=== PATIENT | female | born 1980 | race Caucasian/White ===

== ENCOUNTER 2024-12-15 08:13 | Emergency (ER) | payer OTHER ==
[2024-12-15 08:17] VITALS: RESP 18; TEMP 97.4
[2024-12-15 08:18] LABS: Glucose,Whole Blood 199 mg/dL (70-110)
--- NOTE | 2024-12-15 08:42 | ED ---
Recheck HPI - General Chief Complaint: Recheck/Abnormal Lab/Rx Stated Complaint: R Foot Issue Time Seen by Provider: 12/15/24 08:42 Source: patient, RN notes reviewed Mode of arrival: ambulatory Limitations: no limitations - History of Present Illness Initial Comments: 44-year-old female with a past medical history significant of type 2 diabetes and hypertension presented the ER for evaluation of right great toe pain. Patient states in July she accidentally stepped on a thumbtack with her right foot. Patient ultimately underwent surgical debridement of the wound and has been following up with wound care. Patient states wound care told her wound was completely healed and she no longer needed to wear boot. She states she is currently in town from [place] visiting a friend. She reports yesterday she was doing a lot of walking and today noticed swelling and discoloration to right great toe. She states her toe was "numb". She denies any known injuries or traumas. Patient also reports elevated blood pressures. Patient reports she follows up with cardiology and is prescribed losartan and carvedilol. She has not taken her morning dose of carvedilol. She denies any dizziness, lightheadedness, chest pain, shortness of breath, visual disturbances or headache. 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 Patient denies any fevers, chills, nausea, vomiting, abdominal pain, constipation/diarrhea, urinary complaints or other complaints at this time - Related Data Previous Rx's Medication Instructions Recorded Indomethacin [Indocin] 50 mg PO TID #30 capsule 12/15/24 Allergies Allergy/AdvReac Type Severity Reaction Status Date / Time No Known Allergies Allergy Verified 12/15/24 08:17 Review of Systems ROS Statement: Those systems with pertinent positive or pertinent negative responses have been documented in the HPI. ROS Other: All systems not noted in ROS Statement are negative. Past Medical History Past Medical History: Heart Failure, Diabetes Mellitus History of Any Multi-Drug Resistant Organisms: None Reported Past Surgical History: No Surgical Hx Reported Past Psychological History: No Psychological Hx Reported Smoking Status: Never smoker Past Alcohol Use History: None Reported Past Drug Use History: None Reported General Exam Limitations: no limitations General appearance: alert, in no apparent distress Respiratory exam: Present: normal lung sounds bilaterally. Absent: respiratory distress, wheezes, rales, rhonchi, stridor Cardiovascular Exam: Present: regular rate, normal rhythm, normal heart sounds. Absent: systolic murmur, diastolic murmur, rubs, gallop, clicks Extremities exam: Present: full ROM, normal capillary refill (2+ right DP), other (Healed elliptical wound to dorsal aspect of right foot. There is no open wound, erythema, purulent drainage. Edema to right great toe. No erythema or rash) Neurological exam: Present: alert, oriented X3, CN II-XII intact Skin exam: Present: warm, dry, intact, normal color. Absent: rash Course Vital Signs 12/15/24 12/15/24 08:13 10:04 Temperature 97.4 F L Pulse Rate 77 79 Respiratory 18 18 Rate Blood Pressure 192/102 179/89 O2 Sat by Pulse 99 100 Oximetry Medical Decision Making - Medical Decision Making Was pt. sent in by a medical professional or institution (, PA, LARD TUB WASHER, urgent care, hospital, or halfway...) When possible be specific @ -No Did you speak to anyone other than the patient for history (EMS, parent, family, police, friend...)? What history was obtained from this source @ -No Did you review nursing and triage notes (agree or disagree)? Why? @ -I reviewed and agree with nursing and triage notes Were old charts reviewed (outside hosp., previous admission, EMS record, old EKG, old radiological studies, urgent care reports/EKG's, halfway records)? Report findings @ -No old charts were reviewed Differential Diagnosis (chest pain, altered mental status, abdominal pain women, abdominal pain men, vaginal bleeding, weakness, fever, dyspnea, syncope, headache, dizziness, GI bleed, back pain, seizure, CVA, palpatations, mental health, musculoskeletal)? @ -Differential Musculoskeletal: Muscular strain, contusion, ligament sprain, fracture, arthritis, septic arthritis, bursitis, cellulitis, muscle spasm, nerve compression, DVT, arterial occlusion, herpes zoster, electrolyte abnormality, tumor.... This is not meant to be in all inclusive list EKG interpreted by me (3pts min.). @ -As above X-rays interpreted by me (1pt min.). @ -Right foot x-ray interpreted by me remarkable for soft tissue swelling most pronounced at fifth metatarsal base. No subcutaneous gas or bony erosion concerning of osteomyelitis. No acute fractures. Degenerative changes noted CT interpreted by me (1pt min.). @ -None done U/S interpreted by me (1pt. min.). @ -None done What testing was considered but not performed or refused? (CT, X-rays, U/S, labs)? Why? @ -None What meds were considered but not given or refused? Why? @ -None Did you discuss the management of the patient with other professionals (professionals i.e. , PA, LARD TUB WASHER, lab, RT, psych nurse, social secretary, internal sales, teacher, air intelligence officer, pillowcase turner)? Give summary @ -No Was smoking cessation discussed for >3mins.? @ -No Was critical care preformed (if so, how long)? @ -No Were there social determinants of health that impacted care today? How? (Ho melessness, low income, unemployed, alcoholism, drug addiction, transportation, low edu. Level, literacy, decrease access to med. care, long term, rehab)? @ -No Was there de-escalation of care discussed even if they declined (Discuss DNR or withdrawal of care, Hospice)? DNR status @ -No What co-morbidities impacted this encounter? (DM, HTN, Smoking, COPD, CAD, Cancer, CVA, ARF, Chemo, Hep., AIDS, mental health diagnosis, sleep apnea, morbid obesity)? @ -Diabetes, hypertension Was patient admitted / discharged? Hospital course, mention meds given and route, prescriptions, significant lab abnormalities, going to OR and other pertinent info. @ -Discharge. 42-year-old female presented the ER for evaluation of right great toe pain. Upon arrival patient hypertensive 192/102 patient states she did not take her antihypertensive medication, Coreg, this morning she will be provided with this. Exam remarkable for mild edema to right great toe there is no overlying wounds. Surgical incision appears well healed with no evidence of infection. Patient is neurovascularly intact. Laboratories obtained unimpressive. Urinalysis with 3+ glucose and 3+ protein patient is diabetic. Urine hCG negative. Symptomatic control with Toradol, with improvement. Upon reevaluation, patient resting comfortably in exam room no signs acute distress. Symptoms and blood pressure improved. Patient eager for discharge. Indomethacin prescribed for possible early onset gout, given patient's medical history. Advise close follow-up with PCP. Return parameters discussed. Patient discharged stable condition. Patient verbally expressed understand agreement care plan. Case discussed with ED attending, Dr. Price Undiagnosed new problem with uncertain prognosis? @ -No Drug Therapy requiring intensive monitoring for toxicity (Heparin, Nitro, Insulin, Cardizem)? @ -No Were any procedures done? @ -No Diagnosis/symptom? @ -Toe pain Acute, or Chronic, or Acute on Chronic? @ -Acute Uncomplicated (without systemic symptoms) or Complicated (systemic symptoms)? @ -Uncomplicated Side effects of treatment? @ -No Exacerbation, Progression, or Severe Exacerbation? @ -No Poses a threat to life or bodily function? How? (Chest pain, USA, IA, pneumonia, PE, COPD, DKA, ARF, appy, cholecystitis, CVA, Diverticulitis, Homicidal, Suicidal, threat to staff... and all critical care pts) @ -No - Lab Data Result diagrams: 12/15/24 08:40 12/15/24 08:40 Lab Results 12/15/24 12/15/24 12/15/24 Range/Units 08:16 08:40 08:40 WBC 5.16 (4.50-10.00) 10*3/uL RBC 4.80 (4.10-5.20) 10*6/uL Hgb 13.2 (12.0-15.0) g/dL Hct 40.7 (37.2-46.3) % MCV 84.8 (80.0-97.0) fL MCH 27.5 (27.0-32.0) pg MCHC 32.4 (32.0-37.0) g/dL Plt Count 258 (140-440) 10*3/uL MPV 10.8 (9.5-12.2) fL Immature Gran % (Auto) 0.2 % Neutrophils % 65.1 % Lymphocytes % 24.4 % Monocytes % 7.2 % Eosinophils % 2.5 % Basophils % 0.6 % Immature Gran # 0.01 (0.00-0.04) 10*3/uL Neutrophils # 3.36 (1.80-7.70) 10*3/uL Lymphocytes # 1.26 (0.90-5.00) 10*3/uL Monocytes # 0.37 (0.20-1.00) 10*3/uL Eosinophils # 0.13 (0.04-0.35) 10*3/uL Basophils # 0.03 (0.00-0.10) 10*3/uL Sodium 136 L (137-145) mmol/L Potassium 4.4 (3.5-5.1) mmol/L Chloride 108 H (98-107) mmol/L Carbon Dioxide 22 (22-30) mmol/L Anion Gap 6 mmol/L BUN 30 H (7-17) mg/dL Creatinine 1.00 (0.52-1.04) mg/dL Est GFR (CKD-EPI)AfAm 81 (>60 ml/min/1.73 sqM) Est GFR (CKD-EPI)NonAf 70 (>60 ml/min/1.73 sqM) Glucose 191 H (74-99) mg/dL POC Glucose (mg/dL) 199 H (70-110) mg/dL POC Glu Choir Teacher ID Breonna Guzman Calcium 9.2 (8.4-10.2) mg/dL Total Bilirubin 0.4 (0.2-1.3) mg/dL AST 30 (14-36) U/L ALT 34 (4-34) U/L Alkaline Phosphatase 156 H (38-126) U/L Total Protein 6.3 (6.3-8.2) g/dL Albumin 3.3 L (3.5-5.0) g/dL Urine Color Urine Appearance (Clear) Urine pH (5.0-8.0) Ur Specific [place] (1.001-1.035) Urine Protein (Negative) Urine Glucose (UA) (Negative) Urine Ketones (Negative) Urine Blood (Negative) Urine Nitrite (Negative) Urine Bilirubin (Negative) Urine Urobilinogen (<2.0) mg/dL Ur Leukocyte Esterase (Negative) Urine RBC (0-5) /hpf Urine WBC (0-5) /hpf Ur Squamous Epith Cells (0-4) /hpf Urine Bacteria (None) /hpf Urine HCG, Qual (Not Detectd) 12/15/24 12/15/24 Range/Units 08:40 08:40 WBC (4.50-10.00) 10*3/uL RBC (4.10-5.20) 10*6/uL Hgb (12.0-15.0) g/dL Hct (37.2-46.3) % MCV (80.0-97.0) fL MCH (27.0-32.0) pg MCHC (32.0-37.0) g/dL Plt Count (140-440) 10*3/uL MPV (9.5-12.2) fL Immature Gran % (Auto) % Neutrophils % % Lymphocytes % % Monocytes % % Eosinophils % % Basophils % % Immature Gran # (0.00-0.04) 10*3/uL Neutrophils # (1.80-7.70) 10*3/uL Lymphocytes # (0.90-5.00) 10*3/uL Monocytes # (0.20-1.00) 10*3/uL Eosinophils # (0.04-0.35) 10*3/uL Basophils # (0.00-0.10) 10*3/uL Sodium (137-145) mmol/L Potassium (3.5-5.1) mmol/L Chloride (98-107) mmol/L Carbon Dioxide (22-30) mmol/L Anion Gap mmol/L BUN (7-17) mg/dL Creatinine (0.52-1.04) mg/dL Est GFR (CKD-EPI)AfAm (>60 ml/min/1.73 sqM) Est GFR (CKD-EPI)NonAf (>60 ml/min/1.73 sqM) Glucose (74-99) mg/dL POC Glucose (mg/dL) (70-110) mg/dL POC Glu Choir Teacher ID Calcium (8.4-10.2) mg/dL Total Bilirubin (0.2-1.3) mg/dL AST (14-36) U/L ALT (4-34) U/L Alkaline Phosphatase (38-126) U/L Total Protein (6.3-8.2) g/dL Albumin (3.5-5.0) g/dL Urine Color Colorless Urine Appearance Clear (Clear) Urine pH 6.5 (5.0-8.0) Ur Specific [place] 1.013 (1.001-1.035) Urine Protein 3+ H (Negative) Urine Glucose (UA) 3+ H (Negative) Urine Ketones Negative (Negative) Urine Blood Small H (Negative) Urine Nitrite Negative (Negative) Urine Bilirubin Negative (Negative) Urine Urobilinogen <2.0 (<2.0) mg/dL Ur Leukocyte Esterase Negative (Negative) Urine RBC 2 (0-5) /hpf Urine WBC 1 (0-5) /hpf Ur Squamous Epith Cells <1 (0-4) /hpf Urine Bacteria Rare H (None) /hpf Urine HCG, Qual Not Detected (Not Detectd) - EKG Data -: EKG Interpreted by Me EKG Comments: EKG taken at 9: 31 showing a sinus rhythm. No ST segment elevations or depressions. No T wave inversions. Ventricular rate 67, ID 151, QRS duration 92, QT/QTc 413/429 - Radiology Data Radiology results: report reviewed, image reviewed Disposition Clinical Impression: Toe pain Disposition: HOME SELF-CARE Condition: Stable Additional Instructions: Follow-up with podiatry and surgeon. Return to the ER for any new or worsening symptoms. Prescriptions: Indomethacin [Indocin] 50 mg PO TID #30 capsule Is patient prescribed a controlled substance at d/c from ED?: No Referrals: Nonstaff,Physician [Primary Care Provider] - 1-2 days Time of Disposition: 09:50
[2024-12-15] MEDS: KETOROLAC 15 MG/ML 1 ML VIAL IVP STA (09:02)
[2024-12-15] MEDS: carvediloL 6.25 MG TAB PO STA (09:03)
[2024-12-15 09:15] LABS: Basophils # (A) 0.03 10*3/uL (0.00-0.10); Basophils % (A) 0.6 %; Eosinophils # (A) 0.13 10*3/uL (0.04-0.35); Eosinophils % (A) 2.5 %; HCT 40.7 % (37.2-46.3); HGB 13.2 g/dL (12.0-15.0); Lymphocytes # (A) 1.26 10*3/uL (0.90-5.00); Lymphocytes % (A) 24.4 %; MCH 27.5 pg (27.0-32.0); MCHC 32.4 g/dL (32.0-37.0); MCV 84.8 fL (80.0-97.0); Mean Platelet Volume 10.8 fL (9.5-12.2); Monocytes # (A) 0.37 10*3/uL (0.20-1.00); Monocytes % (A) 7.2 %; Neutrophils # (A) 3.36 10*3/uL (1.80-7.70); Neutrophils % (A) 65.1 %; Platelet Count 258 10*3/uL (140-440); RDW 15.9 % (11.5-14.5); WBC 5.16 10*3/uL (4.50-10.00)
[2024-12-15 09:19] LABS: Appearance,Urine Clear (Clear); Bacteria,Urine Rare /hpf; Bilirubin,Urine Negative (Negative); Blood,Urine Small (Negative); Color,Urine Colorless; Glucose,Urine (UA) 3+ (Negative); Ketones,Urine Negative (Negative); Leukocyte Esterase,Urine Negative (Negative); Nitrite,Urine Negative (Negative); PH, Urine 6.5 (5.0-8.0); Protein,Urine 3+ (Negative); RBC,Urine 2 /hpf (0-5); Specific Gravity,Urine 1.013 (1.001-1.035); Squamous Epithelial Cell,Urine <1 /hpf (0-4); Urobilinogen,Urine <2.0 mg/dL (<2.0); WBC,Urine 1 /hpf (0-5)
--- NOTE | 2024-12-15 09:27 | XR ---
EXAMINATION TYPE: XR foot complete RT DATE OF EXAM: 12/15/2024 9:17 AM COMPARISON: None CLINICAL INDICATION: Female, 44 years old with history of great toe edema; PHH, pain TECHNIQUE: XR foot complete RT examined in the AP, oblique, and lateral projections. FINDINGS: No evidence of any acute osseous pathology. Multifocal degeneration changes throughout the joints of the foot with osteophyte formation and joint space narrowing. Soft tissue swelling without evidenc e of subcutaneous gas or erosion to suggest osteomyelitis. Soft tissue swelling most pronounced along the fifth metatarsal base and metatarsophalangeal joint of the fifth digit as well as the first digi t. Calcaneal plantar spurring and Achilles enthesophyte formation. IMPRESSION: 1. Soft tissue swelling without evidence of subcutaneous gas or erosion to suggest osteomyelitis. 2. No evidence of acute fracture. 3. Multifocal degeneration changes throughout the joints of the foot. [facility], , 12/15/2024 9:25 AM
[2024-12-15 09:30] LABS: ALT 34 U/L (4-34); AST 30 U/L (14-36); African American GFR (CKD) 81 (>60 ml/min/1.73 sqM); Albumin 3.3 g/dL (3.5-5.0); Alkaline Phosphatase 156 U/L (38-126); Anion Gap 6 mmol/L; Blood Urea Nitrogen 30 mg/dL (7-17); Calcium 9.2 mg/dL (8.4-10.2); Carbon Dioxide 22 mmol/L (22-30); Chloride 108 mmol/L (98-107); Glucose 191 mg/dL (74-99); Non-African American GFR(CKD) 70 (>60 ml/min/1.73 sqM); Potassium 4.4 mmol/L (3.5-5.1); Sodium 136 mmol/L (137-145); Total Bilirubin 0.4 mg/dL (0.2-1.3); Total Protein 6.3 g/dL (6.3-8.2)
[2024-12-15 10:05] VITALS: BP 179/89; PULSE 79
== END 2024-12-15 10:23 | disposition home or self-care (01) ==
LOC: EC 08:13
DX: M79.674 Pain in right toe(s) (principal); E11.9 Type 2 diabetes mellitus without complications; I11.0 Hypertensive heart disease with heart failure; I50.9 Heart failure, unspecified
CPT/HCPCS: 36415; 93005; 80053; 85025; 81001; 81025; 73630; 99284; 96374; J1885

== ENCOUNTER → 2024-12-18 | Outpatient (CLI) | payer OTHER ==
[2024-12-18 15:10] LABS: Basophils # (A) 0.03 X 10*3/uL (0.00-0.10); Basophils % (A) 0.5 %; Eosinophils # (A) 0.06 X 10*3/uL (0.04-0.35); Eosinophils % (A) 0.9 %; HCT 42.1 % (37.2-46.3); HGB 13.1 g/dL (12.0-15.0); Immature Grans, Automated 0.30 %; Lymphocytes # (A) 1.04 X 10*3/uL (0.90-5.00); Lymphocytes % (A) 16.2 %; MCH 27.1 pg (27.0-32.0); MCHC 31.1 g/dL (32.0-37.0); MCV 87.0 FL (80.0-97.0); Monocytes # (A) 0.29 X 10*3/uL (0.20-1.00); Monocytes % (A) 4.5 %; NRBC Per 100 WBC 0 X 10*3/uL (0.00-0.01); Neutrophils # (A) 4.98 X 10*3/uL (1.80-7.70); Neutrophils % (A) 77.6 %; Platelet Count 300 X 10*3/uL (140-440); RBC 4.84 X 10*6/uL (4.10-5.20); RDW 16.5 % (11.5-14.5); WBC 6.42 X 10*3/uL (4.50-10.00)
[2024-12-18 15:43] LABS: ALT 29 U/L (8-44); AST 25 U/L (13-35); Albumin 3.3 g/dL (3.8-4.9); Albumin/Globulin Ratio 1.32 Ratio (1.60-3.17); Alkaline Phosphatase 103 U/L (41-126); Anion Gap 10.10 mmol/L (4.00-12.00); BUN/Creat Ratio 28.64 Ratio (12.00-20.00); Blood Urea Nitrogen 40.1 mg/dL (9.0-27.0); Calcium 8.9 mg/dL (8.7-10.3); Carbon Dioxide 22.9 mmol/L (21.6-31.8); Chloride 104 mmol/L (96-109); Ferritin 31.6 ng/mL (10.0-291.0); Globulin 2.5 g/dL (1.6-3.3); Glucose 234 mg/dL (70-110); Iron 60 UG/DL (50-170); Magnesium 2.2 mg/dL (1.5-2.4); Potassium 4.8 mmol/L (3.5-5.5); Sodium 137 mmol/L (135-145); Total Iron Binding Capacity 301 UG/DL (228-460); Total Protein 5.8 g/dL (6.2-8.2); Uric Acid 5.5 mg/dL (2.9-7.7)
[2024-12-18 16:12] LABS: Follicle Stimulating Hormone 6.1 mIU/mL
[2024-12-18 16:37] LABS: Bacteria,Urine 1+ (None Seen); Bilirubin,Urine Small (Negative); Blood,Urine Negative (Negative); Color,Urine Dark Yellow (Yellow); Ketones,Urine Trace (Negative); Nitrite,Urine Negative (Negative); PH, Urine 5.0; Specific Gravity,Urine 1.034 (1.001-1.030); Urobilinogen,Urine 1.0
== END | disposition home or self-care (01) ==
LOC: LABWHC1 11:03
PROVIDERS: ATTEND Internal Medicine Nephrology
DX: N91.2 Amenorrhea, unspecified (principal); N92.6 Irregular menstruation, unspecified; R10.2 Pelvic and perineal pain; N18.2 Chronic kidney disease, stage 2 (mild)
CPT/HCPCS: 36415; 80053; 81001; 82043; 82306; 82570; 82670; 82728; 83001; 83036; 83540; 83550; 83735; 83970; 84100; 84144; 84146; 84403; 84443; 84550; 85025